=== PATIENT | male | born 1980 | race American Indian/Alaskan Native ===

== ENCOUNTER 2018-01-26 13:56 | Emergency (ER) | payer MEDICAID ==
[2018-01-26 15:02] LABS: Bilirubin,Urine NEG (Negative); Blood,Urine NEG (Negative); Color,Urine Yellow (Yellow); Mucus,Urine 1+ /HPF; Protein,Urine <15 mg/dL mg/dL (Negative); Urobilinogen,Urine < 2.0 mg/dL (<2.0)
[2018-01-26 15:09] LABS: Amphetamine Screen,Urine PRESUMPTIVE NEGATIVE; Benzodiazepines Screen,Urine PRESUMPTIVE NEGATIVE; Cocaine Screen,Urine PRESUMPTIVE NEGATIVE; Methadone Screen,Urine PRESUMPTIVE NEGATIVE; Opiate Screen,Urine PRESUMPTIVE NEGATIVE
[2018-01-26 15:24] LABS: Cannabinoid Screen,Urine PRESUMPTIVE POSITIVE
[2018-01-26 15:54] LABS: Basophils # (Auto) 0.1 K/mm3 (0.0-0.1); Basophils % (Auto) 0.7 % (0.0-1.8); Eosinophils # (Auto) 0.1 K/mm3 (0.0-0.4); Hematocrit 46.7 % (35.5-45.6); Hemoglobin 14.8 gm/dl (11.8-15.2); Lymphocytes # (Auto) 3.3 K/mm3 (1.2-5.4); Lymphocytes % (Auto) 32.1 % (13.4-35.0); Mean Corpuscular HGB Conc 32 % (32-34); Mean Corpuscular Hemoglobin 29 pg (28-32); Mean Corpuscular Volume 91 fl (84-94); Monocytes # (Auto) 1.2 K/mm3 (0.0-0.8); Monocytes % (Auto) 12.1 % (0.0-7.3); Platelet Count 330 K/mm3 (140-440); Red Blood Count 5.14 M/mm3 (3.65-5.03); Red Cell Distribution Width 14.3 % (13.2-15.2)
[2018-01-26 16:15] LABS: Alanine Aminotransferase 12 units/L (7-56); Albumin 4.5 g/dL (3.9-5); BUN/Creatinine Ratio 17; Blood Urea Nitrogen 15 mg/dL (9-20); Calcium 9.8 mg/dL (8.4-10.2); Hemolysis Index 20
--- NOTE | 2018-01-26 17:19 | Emergency Department Report ---
HPI - General Chief Complaint: Altered Mental Status Time Seen by Provider: 01/26/18 15:18 - HPI HPI: 37-year-old male found on the side of the road talking to himself, acting inappropriately, was brought to ED for mental health evaluation. In ED patient having delusions, however deny SI and HI. Patient is oriented to self only, dating his [place], [place] country, appears disheveled , and incoherent. Was placed on 1013 for acute psychosis, behavioral health consulted. ED Past Medical Hx - Past Medical History Previous Medical History?: No Hx Hypertension: No Hx CVA: No - Surgical History Past Surgical History?: No ED Review of Systems ROS: Stated complaint: ALTERED MENTAL STATUS Other details as noted in HPI Comment: All other systems reviewed and negative Cardiovascular: denies: chest pain, palpitations Gastrointestinal: denies: abdominal pain, nausea, vomiting Physical Exam - Physical Exam Vital Signs: Vital Signs 01/26/18 14:22 Temperature 98.7 F Pulse Rate 64 Respiratory 16 Rate Blood Pressure 113/69 [Left] O2 Sat by Pulse 100 Oximetry Physical Exam: - Physical Exam Physical Exam: - General Limitations: No Limitations General appearance: alert, in no distress - Head Head exam: Present: atraumatic, normocephalic - Eye Eye exam: Present: normal appearance - ENT ENT exam: Present: mucous membranes moist - Neck Neck exam: Present: normal inspection - Respiratory Respiratory exam: Present: normal lung sounds bilaterally. Absent: respiratory distress - Cardiovascular Cardiovascular Exam: Present: normal rhythm, tachycardia. Absent: systolic murmur, diastolic murmur, rubs, gallop - GI/Abdominal GI/Abdominal exam: Present: soft, normal bowel sounds - Extremities Exam Extremities exam: Present: normal inspection - Back Exam Back exam: Present: normal inspection - Neurological Exam Neurological exam: Present: alert, not oriented to time, I'll place - Psychiatric Psychiatric exam: Anxious appearing, having delusions, hallucinations - Skin Skin exam: Appears disheveled ED Course Vital Signs 01/26/18 14:22 Temperature 98.7 F Pulse Rate 64 Respiratory 16 Rate Blood Pressure 113/69 [Left] O2 Sat by Pulse 100 Oximetry ED Medical Decision Making - Lab Data Result diagrams: 01/26/18 15:26 01/26/18 15:26 Critical care attestation.: If time is entered above; I have spent that time in minutes in the direct care of this critically ill patient, excluding procedure time. ED Disposition Clinical Impression: Acute psychosis, Medical clearance for psychiatric admission Disposition: [id number] ANOTHER TYPE HLTHCARE Is pt being admited?: No Does the pt Need Aspirin: No Condition: Stable Referrals: PRIMARY CARE, [Primary Care Provider] - 3-5 Days
--- NOTE | 2018-01-28 16:18 | Consultation ---
History of Present Illness - Reason for Consult Reason for consult: psych consult - Chief Complaint Chief complaint: CC:no answer 37 year old BM with unknown prior psych history presents to [facility]. We've been asked to see the patient for a psych eval. The patient presents highly disorganized. He isn't able to answer the majority of my questions and seems to be responding. He noted that E.T. was here in the middle of him rambling. He isn't displaying any SI or HI at this time. Medications and Allergies Allergies Allergy/AdvReac Type Severity Reaction Status Date / Time No Known Allergies Allergy Unverified 01/26/18 14:18 Home Medications Medication Instructions Recorded Confirmed Last Taken Type Unobtainable 01/26/18 01/26/18 Unknown History Past psychiatric history - Past Medical History Past Medical History: other (no answer from patient) - past Psychiatric treatment and history psychiatric treatment history: Inpt, Outpt, Suicide history- patient too disorganized to answer unclear past psych meds, unknown med hx, unknown substance abuse history - Social History Social history: other (unknown- pt not answering) Mental Status Exam - Vital signs Last Vital Signs Temp 97.8 F 01/28/18 07:55 Pulse 87 01/28/18 07:55 Resp 16 01/28/18 07:55 BP 98/62 01/28/18 07:55 Pulse Ox 98 01/28/18 07:55 - Exam Orientation: person Affect: agitated Mood: other (no answer) Thought content: delusions, paranoia Thought Process: Circumstantial, Tangential, Disorganized Perceptions: hallucinations Speech: minimal response Concentration: unable to pay attention Motor activity: agitated Level of consciousness: alert Interaction: uncooperative Results Result Diagrams: 01/26/18 15:26 01/26/18 15:26 All other labs normal. Assessment and Plan Assessment and plan: 37 year old BM with unknown prior psych history presents to [facility]. We've been asked to see the patient for a psych eval. The patient presents highly disorganized. He isn't able to answer the majority of my questions and seems to be responding. DX: SCPT (Schizophrenia- PT) and Cannabis abuse 1- psychosis- add risperdal 2mg po qhs- discussed side effects, risks, benefits with patient- will look at placement at a psych facility 2. drug use- testing pos for THC- no treatment at this time- being mindful it could have led to this psychotic presentation
[2018-01-28] MEDS: RisperDAL PO SCH (22:05)
[2018-01-29] MEDS: RisperDAL PO SCH (22:15)
[2018-01-30] MEDS: RisperDAL PO SCH (21:47)
--- NOTE | 2018-01-31 15:38 | Progress Note ---
Subjective - Reason for Consult Consult date: 01/31/18 Reason for consult: mental health consult Requesting physician: JIHAN OLMOS - Chief Complaint Chief complaint: 37-year-old male with psychosis was seen as a follow-up today in the emergency room. He continued to present as disorganized, with rambling speech. He did appear to be responding to internal stimuli and did agree to having auditory hallucinations. Patient was a poor historian and was not able to provide with any other meaningful information. His speech was also at times difficult to follow. Mental Status Exam - Vital signs Last Vital Signs Temp 98 F 01/30/18 20:00 Pulse 87 01/30/18 20:00 Resp 18 01/30/18 20:00 BP 127/89 01/30/18 20:00 Pulse Ox 98 01/30/18 20:00 - Exam Narrative exam: MSE: - Exam Orientation: person Affect: incongruent, labile Mood: other (no answer) Thought content: delusions, paranoia Thought Process: Circumstantial, Tangential, Disorganized Perceptions: hallucinations Speech: minimal response Concentration: unable to pay attention Motor activity: agitated Level of consciousness: alert Interaction: uncooperative Assessment and Plan Assessment and plan: 37 year old BM with unknown prior psych history presents to [facility]. Patient continues to present as highly disorganized and appeared to be responding to internal stimuli. DX: SCPT (Schizophrenia- PT) and Cannabis abuse 1- psychosis- risperdal 2mg po qhs- discussed side effects, risks, benefits with patient- will look at placement at a psych facility 2. drug use- testing pos for THC- no treatment at this time- being mindful it could have led to this psychotic presentation 3. Continue patient on 1012, a psychiatric inpatient hospitalization for stabilization.
--- NOTE | 2018-01-31 22:01 | Progress Note ---
Subjective - Reason for Consult Consult date: 01/29/18 Reason for consult: Psychiatric Follow-up Evaluation - Chief Complaint Chief complaint: Jung is a 37-year-old male with psychosis. He was seen as a follow-up today in the emergency room. Today, he states "I'm doing a little better. I'm still hearing things. I know [place]." Patient presents disorganized. He does not answer questions appropriately. Provider has difficulty following the conversation. Mental Status Exam - Vital signs Last Vital Signs Temp 98.3 F 01/31/18 10:00 Pulse 60 01/31/18 10:00 Resp 18 01/31/18 10:00 BP 99/54 01/31/18 10:00 Pulse Ox 98 01/30/18 20:00 - Exam Narrative exam: Mental Status Exam General Appearance: Poorly groomed-unkempt Eye Contact: Intermittent Orientation: Alert and oriented x ( person, place, time) Attitude/Behavior: Cooperative Sensorium: Distracted Psychomotor & Musculoskeletal Activity: WNL Mood: "Depressed. I get more depressed when I'm not smoking cigarettes." Affect: Constricted Speech/Language: Slow Thought Processes: disorganized, circumstantial, loose associations Thought Content: Impoverished Perception: + Auditory Hallucinations Concentration/Attention: Impaired Suicidal Ideations/Plan: Patient denies Homicidal Ideations/Plan: Patient denies Assessment and Plan Impression: Patient is 37 year old BM with unknown prior psych history presents to [facility]. Today he presents disorganized. During assessment patient is rambling. Thought content of poverty. He denies SI/HI. DDx: Schizophrenia, paranoid type; Cannabis abuse Plan: 1. Continue 1013 and reassess on 01/30/18. 2. Continue to Risperdal for psychosis. 3. Assist with placement to an inpatient psychiatric facility. 4. Will continue to monitor.
[2018-01-31] MEDS: RisperDAL PO SCH (22:21)
--- NOTE | 2018-01-31 22:21 | Progress Note ---
Subjective - Reason for Consult Consult date: 01/30/18 Reason for consult: Psychiatric Follow-up Evaluation - Chief Complaint Chief complaint: Jung is a 37-year-old male with psychosis. He was seen as a follow-up today in the emergency room. Today, he states "I feel alright. I should be getting released. I took my medication. MARTINA Antoine." Patient continues to present with disorganized with nonsensical speech. Patient reports medication compliance. He denies any side effects. Mental Status Exam - Vital signs Last Vital Signs Temp 98.3 F 01/31/18 10:00 Pulse 60 01/31/18 10:00 Resp 18 01/31/18 10:00 BP 99/54 01/31/18 10:00 Pulse Ox 98 01/30/18 20:00 - Exam Narrative exam: Mental Status Exam General Appearance: Casually dressed- hospital gown Eye Contact: Intermittent Orientation: Alert and oriented x 1( person) Attitude/Behavior: Cooperative Sensorium: Distracted Psychomotor & Musculoskeletal Activity: WNL Mood: "C;ap on clap off" Affect: Constricted Speech/Language: Rambling Thought Processes: disorganized, loose associations Thought Content: Impoverished, paranoid Perception: + Auditory Hallucinations (internally preoccupied) Concentration/Attention: Impaired Suicidal Ideations/Plan: Patient denies Homicidal Ideations/Plan: Patient denies Assessment and Plan Impression: Patient is 37 year old BM with unknown prior psych history presents to [facility]. Today he presents disorganized. During assessment patient continues to ramble and answer questions inappropriately. Thought content impoverished. He denies SI/HI. Judgement and insight poor. DDx: Schizophrenia, paranoid type; Cannabis abuse Plan: 1. Continue 1013 and reassess on 01/31/18. 2. Continue Risperdal for psychosis. 3. Assist with placement to an inpatient psychiatric facility. 4. Will continue to monitor.
[2018-02-01 11:56] VITALS: BP 108/64
== END 2018-02-01 11:57 | disposition other institution (70) ==
LOC: ED 13:56
DX: F20.0 Paranoid schizophrenia (principal); F12.10 Cannabis abuse, uncomplicated; Z79.899 Other long term (current) drug therapy
CPT/HCPCS: 36415; 80053; 80307; 81001; 84443; 85025; 93005; 93010; 99285; G0480; 80320